=== PATIENT | female | born 1965 | race Caucasian/White ===

== ENCOUNTER 2020-01-26 23:47 | Emergency (ER) | payer MEDICAID ==
[~2020-01-26] VITALS: Ht 157.5 cm; Wt 64.0 kg
[2020-01-27] MEDS ORDERED: IBUPROFEN 600MG TABLET PO ONE (02:45)
[2020-01-27 03:00] VITALS: BP 132/78
== END 2020-01-27 04:35 | disposition home or self-care (01) ==
LOC: ER 23:47
DX: R51 Headache (principal); Z98.51 Tubal ligation status; Z87.730 Personal history of (corrected) cleft lip and palate
CPT/HCPCS: 70486; 99284

== ENCOUNTER 2022-12-04 11:05 | Emergency (ER) | payer MEDICAID ==
[~2022-12-04] VITALS: Ht 157.5 cm; Wt 64.0 kg
[2022-12-04 11:26] VITALS: BP 126/78
[2022-12-04] MEDS ORDERED: VALA10002 MT (14:55)
== END 2022-12-04 15:25 | disposition home or self-care (01) ==
LOC: ER 11:05
DX: B00.1 Herpesviral vesicular dermatitis (principal)
CPT/HCPCS: 99281; 99283

== ENCOUNTER 2023-09-04 10:00 | Emergency (ER) | payer MEDICAID ==
[~2023-09-04] VITALS: Ht 157.5 cm; Wt 66.5 kg
[~2023-09-04 10:00] MED LIST: VALA10002 MT
[2023-09-04 10:27] VITALS: O2SAT 98
[2023-09-04] MEDS ORDERED: IBUP-2029 MT (11:02)
[2023-09-04] MEDS ORDERED: AMOX500T2 MT (11:02)
[2023-09-04 11:27] VITALS: BP 132/58; PULSE 68; TEMP 98.7
== END 2023-09-04 11:28 | disposition home or self-care (01) ==
LOC: ER 10:00
DX: K02.9 Dental caries, unspecified (principal); B00.9 Herpesviral infection, unspecified; Z98.51 Tubal ligation status
CPT/HCPCS: 99281; 99283